=== PATIENT | female | born 1970 | race Two or more races ===

== ENCOUNTER 2017-09-01 08:27 | Outpatient (CLI) | payer OTHER | END 2017-09-01 08:38 | disposition home or self-care (01) | LOC: SONOGRAMA 08:27 → MAMO-SONO 08:45 | DX: R10.9 Unspecified abdominal pain (principal) ==

== ENCOUNTER 2018-07-25 05:55 | Day surgery (SDC) | payer OTHER ==
[2018-07-25] MEDS ORDERED: ULTRACET PO (09:48)
== END 2018-07-25 11:35 | disposition home or self-care (01) ==
LOC: CIR.AMB 05:55
DX: K80.10 Calculus of gallbladder with chronic cholecystitis without obstruction (principal)